=== PATIENT | male | born 1980 | race Caucasian/White ===

== ENCOUNTER 2021-01-05 06:26 | Day surgery (SDC) | payer BC ==
[2020-12-29 16:09] VITALS: BMI 24.5
--- NOTE | 2021-01-05 04:38 | P.GSHP ---
History of Present Illness H&P Date: 01/05/21 CHIEF COMPLAINT: Scalp cysts HISTORY OF PRESENT ILLNESS: The patient is a 40 year-old male with history of cyst on the scalp. He presents today for surgical excision. PAST MEDICAL HISTORY: Please see list. PAST SURGICAL HISTORY: Please see list. MEDICATIONS: Please see list. ALLERGIES: Please see list. SOCIAL HISTORY: No illicit drug use FAMILY HISTORY: No reports of Crohn disease or ulcerative colitis. REVIEW OF ORGAN SYSTEMS: CONSTITUTIONAL: No reports of fevers or chills. GI: Denies any blood in stools or constipation. PHYSICAL EXAM: VITAL SIGNS: Stable SKIN: Well perfused. Good skin turgor. 2 cm lesion x 2 overlying the scalp. Musculoskeletal: No clubbing cyanosis or edema GENERAL: Well developed and in no acute distress. Pleasant. HEENT: No sclera icterus. Extraocular movements grossly intact. Moist buccal mucosa. Head is atraumatic, normocephalic. Hears conversational speech. No nasal drainage. NECK: Supple without lymphadenopathy. No JV distention. CHEST: Non-labored respirations and equal bilateral excursions. CARDIOVASCULAR: Regular rate and rhythm. Palpable 2+ radial pulses. ABDOMEN: Soft. Non-tender. Nondistended. NEUROLOGIC: No focal or lateralizing signs. PSYCH: Appropriate affect. Alert and oriented to person, place and time. ASSESSMENT: 1. Scalp cyst/pilar cyst. PLAN: 1. Excision of pilar cyst described. 2. Nonnarcotic pain management reviewed. 3. Anesthesia under general sedation described with elevated risk. 4. DVT prophylaxis. 5. Antibiotic prophylaxis. 6. Time of recovery, at least one week. 7. Benefits and risks including numbness, decreased sensation, pain, cosmetic deformity were reviewed Past Medical History Additional Past Medical History / Comment(s): scalp cysts,hx palpatations r/t caffeine intake History of Any Multi-Drug Resistant Organisms: None Reported Additional Past Surgical History / Comment(s): cyst removed from ear, tendon removed double aortic arch Past Anesthesia/Blood Transfusion Reactions: Motion Sickness Smoking Status: Never smoker - Past Family History Mother Family Medical History: Cancer Additional Family Medical History / Comment(s): skin CA Father Family Medical History: Cancer Additional Family Medical History / Comment(s): skin CA Medications and Allergies Home Medications Medication Instructions Recorded Confirmed Type Albuterol Inhaler [Ventolin Hfa 2 puff INHALATION RT-QID PRN 12/29/20 12/29/20 History Inhaler] Ergocalciferol (Vitamin D2) 100 mcg PO DAILY 12/29/20 12/29/20 History [Vitamin D2 (2000 Iu)] FLUoxetine HCL [PROzac] 20 mg PO HS 12/29/20 12/29/20 History Ibuprofen 200 mg PO Q8H PRN 12/29/20 12/29/20 History Multivitamins, Thera [Multivitamin 1 tab PO DAILY 12/29/20 12/29/20 History (formulary)] Allergies Allergy/AdvReac Type Severity Reaction Status Date / Time No Known Allergies Allergy Verified 12/29/20 15:59
[~2021-01-05 06:26] MED LIST: DEXAMETHASONE SOD PHOSPHATE 4 MG/ML 1 ML VIAL IV ONE; GABAPENTIN 300 MG CAP PO PRN; HEPARIN SODIUM,PORCINE 5,000 UNIT/ML 1 ML VIAL SQ SCH; LACTATED RINGERS 1,000 ML IV SCH; MELOXICAM 7.5 MG TAB PO PRN; MIDAZOLAM 2 MG/2 ML VIAL IV PRN; ONDANSETRON 4 MG/2 ML VIAL IVP ONE; Pre Op ABX Message 1 EACH MISC MISCELLANE ONE; SCOPOLAMINE 1.5MG/72HR PATCH TRANSDERM ONE
[2021-01-05 06:55] VITALS: RESP 16
[2021-01-05] MEDS ORDERED: ACETAMINOPHEN TAB 500 MG TAB PO PRN (07:00)
[2021-01-05] MEDS ORDERED: HYDROmorphone 0.5 MG/0.5 ML SYRINGE IVP PRN (07:00)
[2021-01-05] MEDS ORDERED: LIDOCAINE 1% (10MG/ML) FOR IV START INTRADERMA ONE (07:03)
[2021-01-05] MEDS ORDERED: PROPOFOL 10 MG/ML 20 ML VIAL IV ONE (07:29)
[2021-01-05] MEDS ORDERED: SUCCINYLCHOLINE CHLORIDE 100 MG/5 ML SYR IV ONE (07:29)
[2021-01-05] MEDS ORDERED: LIDOCAINE 1% INJ 10MG/ML (20 ML MDV) ONE (07:29)
[2021-01-05] MEDS ORDERED: MIDAZOLAM 2 MG/2 ML VIAL ONE (07:29)
[2021-01-05] MEDS ORDERED: fentaNYL (PF) 50 MCG/ML 2 ML AMP ONE (07:29)
[2021-01-05 07:36] LABS: Basophils % (A) 0 %; Eosinophils # (A) 0.2 k/uL (0-0.7); Eosinophils % (A) 3 %; HCT 46.9 % (39.0-53.0); HGB 16.4 gm/dL (13.0-17.5); Lymphocytes # (A) 1.7 k/uL (1.0-4.8); Lymphocytes % (A) 30 %; MCH 31.2 pg (25.0-35.0); Mean Platelet Volume 6.8; Monocytes # (A) 0.3 k/uL (0-1.0); Monocytes % (A) 5 %; Neutrophils # (A) 3.2 k/uL (1.3-7.7); Neutrophils % (A) 59 %; Platelet Count 226 k/uL (150-450); RBC 5.27 m/uL (4.30-5.90); WBC 5.5 k/uL (3.8-10.6)
[2021-01-05 07:53] LABS: African American GFR (CKD) >90 (>60 ml/min/1.73 sqM); Anion Gap 8 mmol/L; Blood Urea Nitrogen 21 mg/dL (9-20); Calcium 9.5 mg/dL (8.4-10.2); Carbon Dioxide 27 mmol/L (22-30); Chloride 103 mmol/L (98-107); Glucose 94 mg/dL (74-99); Non-African American GFR(CKD) >90 (>60 ml/min/1.73 sqM); Potassium 4.2 mmol/L (3.5-5.1); Sodium 138 mmol/L (137-145)
[2021-01-05] MEDS ORDERED: BUPIVACAIN-EPI 0.5%-1:200,000 30 ML VIAL SQ ONE ×2 (07:53)
--- NOTE | 2021-01-05 08:59 | P.OP ---
Date of Procedure: 01/05/21 Description of Procedure: SURGEON: VALERIE BOUDREAUX MD PREOPERATIVE DIAGNOSES: 1. Left occipital scalp tumor, 2 cm 2. Left forehead tumor, 3 cm 3. Depressive disorder 4. Asthma POSTOPERATIVE DIAGNOSES: 1. Left occipital scalp tumor, 2 cm 2. Left forehead tumor, 3 cm 3. Depressive disorder 4. Asthma PROCEDURES PERFORMED: 1. Excision of left occipital scalp tumor, 2 cm, subcutaneous with intermediate closure, 2-cm 2. Excision of left forehead tumor, 3 cm subcutaneous with simple closure, 3-cm Anesthesia: GETA, local Estimated Blood Loss (ml): 5 Pathology: other (scalp mass and forehead mass) Condition: stable Disposition: same day COMPLICATIONS: None. Operative Findings: 1. Excision of deep subcutaneous and fascial tumor with wide undermining for closure 9 x 3 cm. INDICATIONS: The patient is a 40-year-old male who presents with forehead and scalp tumors. Benefits and risks of surgical intervention were described including bleeding, infection. Informed consent was obtained. DESCRIPTION OR PROCEDURE: In the preoperative area, the area of concern was marked with indelible marker. Patient was brought into the operating room. After general induction, he was positioned in supine position. The scalp was prepped and draped in a standard sterile fashion. Timeout protocol was confirmed with the surgical team regarding the patient's name, procedure to be performed including preoperative medications. DVT prophylaxis was confirmed. A field block was placed of the left occipital scalp. A transverse elliptical incision using #15 blade was made along the marking into the deep subcutaneous tissue. Electro-Bovie cautery was used to incise to the fascia with dissection and elevation of the mass. 3-0 Vicryl for the deep subcutaneous tissue was placed. Final running suture of 3-0 Prolene was placed to completely close the dermis. Attention was brought to the forehead tumor. A field block was placed of the left forehead tumor along the hair line. A transverse elliptical incision using #15 blade was made along the marking into the deep subcutaneous tissue. Electro-Bovie cautery was used to incise to the fascia with dissection and elevation of the mass. 3-0 Vicryl for the deep subcutaneous tissue was placed. Final running suture of 3-0 Prolene was placed t o completely close the dermis. The skin was cleansed with hydrogen peroxide followed by bacitracin ointment along the closure. At the end of the procedure, needle, sponge, and instrument count was verified correct by surgical aides teacher. The patient tolerated the procedure well. Plan - Discharge Summary Discharge Rx Participant: No New Discharge Prescriptions: New Ibuprofen [Motrin] 600 mg PO Q8HR PRN #30 tab PRN Reason: Pain Acetaminophen Tab [Tylenol Tab] 1,000 mg PO Q6HR PRN #30 tablet PRN Reason: Pain Continue FLUoxetine HCL [PROzac] 20 mg PO HS Albuterol Inhaler [Ventolin Hfa Inhaler] 2 puff INHALATION RT-QID PRN PRN Reason: sob Multivitamins, Thera [Multivitamin (formulary)] 1 tab PO DAILY Ergocalciferol (Vitamin D2) [Vitamin D2 (2000 Iu)] 100 mcg PO DAILY Discontinued Ibuprofen 200 mg PO Q8H PRN PRN Reason: Pain Discharge Medication List Albuterol Inhaler [Ventolin Hfa Inhaler] 2 puff INHALATION RT-QID PRN 12/29/20 [History] Ergocalciferol (Vitamin D2) [Vitamin D2 (2000 Iu)] 100 mcg PO DAILY 12/29/20 [History] FLUoxetine HCL [PROzac] 20 mg PO HS 12/29/20 [History] Multivitamins, Thera [Multivitamin (formulary)] 1 tab PO DAILY 12/29/20 [History] Acetaminophen Tab [Tylenol Tab] 1,000 mg PO Q6HR PRN #30 tablet 01/05/21 [Rx] Ibuprofen [Motrin] 600 mg PO Q8HR PRN #30 tab 01/05/21 [Rx] Follow up Appointment(s)/Referral(s): Valerie Boudreaux MD [STAFF PHYSICIAN] - 01/09/21 Patient Instructions/Handouts: *Surgery [facility] - Scopalamine Patch Instructions Activity/Diet/Wound Care/Special Instructions: DO NOT REMOVE DRESSING! KEEP DRESSING DRY. Use ice along the dressing to minimize bruising. May gently wash around the dressing with soap and water the scalp, not forehead Sleep on elevated pillows at least 2-3 to prevent swelling around the face and eyes. Bruising around the eyes resolve within 1-2 weeks, January 19 Please take Tylenol scheduled for next 2-3 days. Light activity for 1 week, January 12. Sutures to be removed in the office. Discharge Disposition: HOME SELF-CARE
[2021-01-05 09:08] VITALS: TEMP 97.2
[2021-01-05 10:57] VITALS: BP 125/82; PULSE 47
== END 2021-01-05 11:42 | disposition home or self-care (01) ==
LOC: OR 06:26
PROVIDERS: ATTEND Surgery Plastic and Reconstructive Surgery
DX: L72.11 Pilar cyst (principal); F32.9 Major depressive disorder, single episode, unspecified; J45.909 Unspecified asthma, uncomplicated; R00.2 Palpitations; Z98.890 Other specified postprocedural states; Z80.8 Family history of malignant neoplasm of other organs or systems; Z79.899 Other long term (current) drug therapy; F41.9 Anxiety disorder, unspecified
CPT/HCPCS: 88304; 80048; 85025; 11422; 12031; 11443; J2250; J1644; J1100; J0690; J2405; J2001; J3010; J0330; J2704

== ENCOUNTER 2024-06-25 11:30 | Day surgery (SDC) | payer BC ==
[2024-06-25] MEDS ORDERED: PROPOFOL 10 MG/ML 20 ML VIAL IV ONE (12:46)
[2024-06-25] MEDS ORDERED: LACTATED RINGERS 1,000 ML BAG ONE (12:46)
--- NOTE | 2024-06-25 15:58 | PCN ---
PROCEDURE NOTE REQUESTING PHYSICIAN: Dr. Trinh. BRIEF HISTORY: The patient is a 44-year-old pleasant white male scheduled for an elective colonoscopy as a part of evaluation of intermittent rectal bleeding for the last 1 year duration. PROCEDURE PERFORMED: Colonoscopy with snare polypectomy. PREOPERATIVE DIAGNOSIS: Intermittent rectal bleeding. ANESTHESIA: IV sedation per Anesthesia. DESCRIPTION OF PROCEDURE: After informed consent was obtained from the patient, he was brought in to the endoscopy unit. IV conscious sedation was administered by Anesthesia under continuous monitoring. Initial digital rectal examination was normal. The Olympus CF-190 video colonoscope was then inserted in the rectum and gradually advanced to the cecum. Careful examination was performed. The scope was gradually being withdrawn. The ileocecal valve and appendiceal orifice were visualized and appeared normal. The prep was fair. Mucosa of the cecum, ascending colon, transverse colon, descending colon, sigmoid colon, and rectum appeared normal. In the cecum, there was a 5 mm polyp that was removed by cold snare polypectomy. In the rectum, retroflexion was performed. Grade 2 internal hemorrhoids were noted. The patient tolerated the procedure well. IMPRESSION: 1. A 5 mm cecal polyp, status post cold snare polypectomy. 2. Monitor hemorrhoids. RECOMMENDATIONS: Findings of this examination were discussed with the patient as well as the family. He was advised to follow up with the biopsy results. If the biopsy result is adenoma, he can have a repeat colonoscopy in 5 years. In the meantime, he was advised to be on a high-fiber diet, take fiber supplements on a regular basis and avoid straining and constipation. MMODL / IJN: [id number] /
== END 2024-06-25 14:09 ==
LOC: ORWHC2ENDO 11:30
PROVIDERS: ATTEND Internal Medicine Gastroenterology
DX: K64.1 Second degree hemorrhoids
CPT/HCPCS: 45385; 88305